=== PATIENT | female | born 1990 | race Caucasian/White ===

== ENCOUNTER 2019-04-27 21:06 | Emergency (ER) | payer MEDICAID ==
[~2019-04-27] VITALS: Ht 157.5 cm; Wt 81.8 kg
[2019-04-27 21:10] VITALS: BP 104/54
[2019-04-27] MEDS ORDERED: naproxen 500mg tablet PO ONE (21:20)
== END 2019-04-27 21:22 | disposition home or self-care (01) ==
LOC: ER 21:06
DX: S60.455A Superficial foreign body of left ring finger, initial encounter (principal); W49.04XA Ring or other jewelry causing external constriction, initial encounter; Y93.89 Activity, other specified; Y92.89 Other specified places as the place of occurrence of the external cause; Y99.8 Other external cause status
CPT/HCPCS: 99284

== ENCOUNTER 2019-04-28 09:06 | Emergency (ER) | payer MEDICAID ==
[~2019-04-28] VITALS: Ht 157.5 cm; Wt 81.8 kg
[2019-04-28 09:14] VITALS: BP 130/88
--- NOTE | 2019-04-28 09:24 | NUR ---
Patient's ring removed/ cut off left rign finger by ocular care technologist.
== END 2019-04-28 09:38 | disposition home or self-care (01) ==
LOC: ER 09:07
DX: S60.455A Superficial foreign body of left ring finger, initial encounter (principal); W49.04XA Ring or other jewelry causing external constriction, initial encounter; Y93.89 Activity, other specified; Y92.89 Other specified places as the place of occurrence of the external cause; Y99.8 Other external cause status
CPT/HCPCS: 99284

== ENCOUNTER 2019-04-28 20:52 | Emergency (ER) | payer MEDICAID ==
[~2019-04-28] VITALS: Ht 157.5 cm; Wt 81.8 kg
[2019-04-28 21:29] VITALS: BP 107/66
== END 2019-04-28 21:30 | disposition home or self-care (01) ==
LOC: ER 20:52
DX: S60.444A External constriction of right ring finger, initial encounter (principal); X58.XXXA Exposure to other specified factors, initial encounter; Y93.89 Activity, other specified; Y92.89 Other specified places as the place of occurrence of the external cause; Y99.9 Unspecified external cause status
CPT/HCPCS: 99284

== ENCOUNTER 2022-11-02 15:57 | Emergency (ER) | payer MEDICARE, MEDICAID ==
[~2022-11-02] VITALS: Ht 157.5 cm; Wt 84.5 kg
[2022-11-02 16:40] LABS: BASOPHILS % (AUTO) 0.3 % (0-1); EOSINOPHILS % (AUTO) 0.1 % (0-6); HEMATOCRIT 40.9 % (35.0-45.0); HEMOGLOBIN 14.2 g/dl (12.0-16.0); LYMPHOCYTES # (AUTO) 1.7 X10'3 (1.1-4.8); LYMPHOCYTES % (AUTO) 22.1 % (21-51); MEAN CORPUSCULAR HGB CONC 34.6 g/dL (33.0-36.5); MEAN CORPUSCULAR VOLUME 86.6 FL (78-98); MEAN PLATELET VOLUME 6.8 FL (7.4-10.4); MONOCYTES # (AUTO) 0.5 X10'3 (0-0.9); MONOCYTES % (AUTO) 6.7 % (2-12); NEUTROPHILS # (AUTO) 5.5 X10'3 (1.8-7.7); NEUTROPHILS % (AUTO) 70.8 % (42-75); PLATELET COUNT 212 X10'3 (140-440); RED BLOOD COUNT 4.72 X10'6 (4.20-5.60); RED CELL DISTRIBUTION WIDTH 12.8 % (11.5-14.5); WHITE BLOOD COUNT 7.8 X10'3 (4.5-11.0)
[2022-11-02 16:41] LABS: URINE HCG NEGATIVE (NEG)
[2022-11-02 16:46] LABS: ALANINE AMINOTRANSFERASE 27 U/L (12-78); ALBUMIN/GLOBULIN RATIO 1.2 (1.1-1.5); ALKALINE PHOSPHATASE 82 IU/L (46-116); ANION GAP 6 (8-16); ASPARTATE AMINO TRANSFERASE 20 U/L (10-37); BILIRUBIN,TOTAL 0.2 MG/DL (0.1-1.0); BLOOD UREA NITROGEN 14 MG/DL (7-18); BUN/CREATININE RATIO 14.4 (6.6-38.0); CALCIUM 9.3 MG/DL (8.5-10.1); CHLORIDE 104 MMOL/L (99-107); CREATININE 0.97 MG/DL (0.40-0.90); GLUCOSE 95 MG/DL (70-104); SODIUM 138 MMOL/L (135-145); TOTAL CARBON DIOXIDE 28.1 MMOL/L (24-32); TOTAL PROTEIN 7.4 G/DL (6.4-8.2); eGFR 67 ML/MIN
[2022-11-02 16:57] LABS: URINE AMPHETAMINE SCREEN NEGATIVE (Neg); URINE BARBITUATE SCREEN NEGATIVE (Neg); URINE BENZODIAZEPINES SCREEN NEGATIVE (Neg); URINE CANNABINOID SCREEN NEGATIVE (Neg); URINE COCAINE SCREEN NEGATIVE (Neg); URINE METHADONE SCREEN NEGATIVE (Neg); URINE OPIATE SCREEN NEGATIVE (Neg); URINE PHENCYCLIDINE SCREEN NEGATIVE (Neg)
[2022-11-02 16:59] LABS: ETHANOL < 0.010 GM/DL (0.0-0.010)
--- NOTE | 2022-11-02 18:24 | NUR ---
report to marlee fraire for continuation of care
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
[2022-11-02] MEDS ORDERED: FLUO20CA39 PO (19:51)
[2022-11-02] MEDS ORDERED: fluticasone (19:51)
[2022-11-02] MEDS ORDERED: NYSTATIN TOP (19:51)
[2022-11-02] MEDS ORDERED: LORA2TAB96 PO (19:51)
[2022-11-02] MEDS ORDERED: CETI10TA14 PO (19:51)
[2022-11-02] MEDS ORDERED: KETO120S5 TOP (19:51)
[2022-11-02] MEDS ORDERED: RISP1TAB98 PO (19:51)
[2022-11-02] MEDS ORDERED: LAMO100T PO (19:51)
[2022-11-02 19:52] LABS: CLARITY,URINE CLEAR (Clear); COLOR,URINE YELLOW (Yellow); GLUCOSE, URINE NEGATIVE (Neg); KETONES,URINE NEGATIVE (Neg); LEUKOCYTE ESTERASE ,URINE NEGATIVE (Neg); NITRITES, URINE NEGATIVE (Neg); OCCULT BLOOD,URINE NEGATIVE (Neg); PROTEIN,URINE NEGATIVE (Neg); UROBILINOGEN,URINE 0.2 E.U/dL (0.2-1.0)
[2022-11-02 20:01] LABS: UA COLLECTION TYPE CLN CATCH MIDSTREAM
[2022-11-02] MEDS ORDERED: FLUT16SP11 BOTHNARES (20:25)
[2022-11-02] MEDS ORDERED: NYST1POW5 TD (20:26)
[2022-11-02] MEDS ORDERED: LORazepam 1 MG tablet PO PRN (20:35)
[2022-11-02] MEDS: risperiDONE 0.5mg tablet PO SCH (20:55)
--- NOTE | 2022-11-02 21:00 | NUR ---
The patient appears to be sleeping
--- NOTE | 2022-11-02 21:52 | NUR ---
PACKET SENT TO [facility]
--- NOTE | 2022-11-03 00:13 | NUR ---
The patient appears to be sleeping
--- NOTE | 2022-11-03 01:34 | NUR ---
The patient appears to be sleeping
--- NOTE | 2022-11-03 03:41 | NUR ---
The patient appears to be sleeping
--- NOTE | 2022-11-03 05:08 | NUR ---
The patient appears to be sleeping
[2022-11-03 05:42] VITALS: BP 109/58
--- NOTE | 2022-11-03 06:54 | NUR ---
Report received from MATEUS Monahan. Patient resting in bed awake. No distress noted.
[2022-11-03] MEDS ORDERED: ketoconazole (Nizoral) shampoo TP SCH (08:00)
[2022-11-03] MEDS: nystatin 15 GM powder TP SCH ×2 (08:00→08:24)
[2022-11-03] MEDS ORDERED: FLUoxetine 20mg capsule PO SCH (08:00)
[2022-11-03] MEDS ORDERED: fluticasone nasal spray 16GM bottle NS SCH (08:00)
[2022-11-03] MEDS ORDERED: cetirizine 10mg tablet PO SCH (08:00)
[2022-11-03] MEDS ORDERED: lamoTRIgine 100mg tablet PO SCH (08:00)
[2022-11-03] MEDS: risperiDONE 0.5mg tablet PO SCH ×2 (08:19→13:07)
--- NOTE | 2022-11-03 08:45 | NUR ---
1:1 done at bedside, medications adminsitered. Pt states she is feeling better and ready to go home but states she does not want to go back to her long-term. She informed nurse the reason why she acted out was because she doesnt want to live in her current long-term.
--- NOTE | 2022-11-03 09:45 | NUR ---
caregiver arrived and sitting with pt at bedside.
--- NOTE | 2022-11-03 10:33 | NUR ---
Pt caregiver (Anastacia) came to visit, pt became noticeably upset, crying and repeatedly saying, "I want to go home, i'm never going to get out of here." Nurse attempted to let pt calm down once caregiver left but pt was unable to do so. ORION luo adminsitered.
--- NOTE | 2022-11-03 11:13 | NUR ---
Spoke with Lucie from [facility] in [place] for a one to one nurse report. Pt is being accepted with them. They will be in contact.
--- NOTE | 2022-11-03 11:26 | NUR ---
Nurse notified pt. she is being transfered to [facility] at approx 430pm. Pt became even more upset requesting to call her parents. Pt was unable to reach them but left a voicemail. Nurse was able to calm pt. down and encouraged her to try to get some rest. Pt. finally has calmed down since the PRN administration and is attempting to get some rest.
--- NOTE | 2022-11-03 12:20 | NUR ---
Pt sitting up eating lunch. No distress noted.
--- NOTE | 2022-11-03 13:08 | NUR ---
1300 medications administered. Pt. is in no distress.
--- NOTE | 2022-11-03 15:13 | NUR ---
Pt resting in bed, no distress noted. Noted rise and fall of chest.
--- NOTE | 2022-11-03 15:49 | NUR ---
Jayda clark in [facility] - 11/03/22 at 1550 by NELLYNN Pt dis[facility]aged to [facility]. Pt ambulated o
--- NOTE | 2022-11-03 15:50 | NUR ---
Pt dischraged to [facility] via [facility]. Pt ambulated out of facility with security. Pt discharged with belongings.
== END 2022-11-03 15:53 ==
LOC: ER 15:59
DX: R45.1 Restlessness and agitation (principal); Z20.822 Contact with and (suspected) exposure to COVID-19; R46.89 Other symptoms and signs involving appearance and behavior; Z79.899 Other long term (current) drug therapy
CPT/HCPCS: 36415; 80053; 80305; 80320; 81003; 81025; 84443; 85025; 87811; 99285

== ENCOUNTER 2024-06-07 13:56 | Emergency (ER) | payer MEDICARE, MEDICAID ==
[~2024-06-07] VITALS: Ht 165.1 cm; Wt 98.0 kg
[~2024-06-07 13:56] MED LIST: CETI10TA14 PO; FLUO20CA39 PO; FLUT16SP11 BOTHNARES; KETO120S5 TOP; LAMO100T PO; LORA2TAB96 PO; NYST1POW5 TD; RISP-31 PO
[2024-06-07] MEDS ORDERED: ketorolac trometh. 30mg/ml inj. IM ONE (15:10)
[2024-06-07] MEDS ORDERED: MELO-100 PO (15:11)
[2024-06-07] MEDS: ketorolac tromethamine 15mg/ml inj. IM ONE (15:16)
[2024-06-07 15:25] VITALS: BP 152/64; PULSE 101; RESP 18; TEMP 98.8; O2SAT 97
== END 2024-06-07 15:26 | disposition home or self-care (01) ==
LOC: ER 13:56
DX: M25.552 Pain in left hip (principal); Z79.899 Other long term (current) drug therapy; Z79.2 Long term (current) use of antibiotics
CPT/HCPCS: 73502; 96372; 99284; J1885